=== PATIENT | female | born 1995 | race African-American/Black ===

== ENCOUNTER 2017-01-21 22:14 | Emergency (ER) | payer BC, MEDICAID ==
[~2017-01-21] VITALS: Ht 172.7 cm; Wt 62.0 kg
[2017-01-22] MEDS ORDERED: ALBUTEROL (0.083%) 2.5MG/3ML NEB HHN STA (01:57)
[2017-01-22] MEDS ORDERED: IPRATROPIUM BROMIDE (0.02%) 0.5MG/2.5ML NEB HHN STA (01:57)
[2017-01-22] MEDS ORDERED: IBUPROFEN 600MG TABLET PO ONE (02:00)
[2017-01-22 02:45] LABS: CLARITY URINE CLEAR (CLEAR); COLOR URINE YELLOW (YELLOW); GLUCOSE URINE NEGATIVE (NEGATIVE); KETONES URINE NEGATIVE (NEGATIVE); LEUKOCYTE ESTERASE URINE NEGATIVE (NEGATIVE); NITRITE URINE NEGATIVE (NEGATIVE); OCCULT BLOOD URINE NEGATIVE (NEGATIVE); PH URINE 6.5 (4.5-8.0); PROTEIN URINE NEGATIVE (NEGATIVE); SPECIFIC GRAVITY URINE 1.017 (1.005-1.030); UROBILINOGEN URINE 0.2 E.U./dL (0.2-1.0)
[2017-01-22] MEDS ORDERED: ACETAMINOPHEN 500MG TABLET PO ONE (04:30)
[2017-01-22 06:16] VITALS: BP 113/76
== END 2017-01-22 07:01 | disposition home or self-care (01) ==
LOC: ER 22:15
DX: M94.0 Chondrocostal junction syndrome [Tietze] (principal); J45.909 Unspecified asthma, uncomplicated; I51.7 Cardiomegaly
CPT/HCPCS: 71010; 81003; 81025; 93005; 94640; 99285; J7611

== ENCOUNTER 2018-08-19 18:55 | Emergency (ER) | payer BC, MEDICAID ==
[~2018-08-19] VITALS: Ht 172.7 cm; Wt 73.0 kg
[2018-08-19 21:45] VITALS: BP 122/76
[2018-08-19] MEDS: IBUPROFEN 600MG TABLET PO ONE (23:45)
[2018-08-20] MEDS: IBUPROFEN 600MG TABLET PO ONE (00:38)
== END 2018-08-19 23:16 | disposition home or self-care (01) ==
LOC: ER 18:55
DX: R07.9 Chest pain, unspecified (principal); J45.909 Unspecified asthma, uncomplicated; Z88.8 Allergy status to other drugs, medicaments and biological substances
CPT/HCPCS: 81025; 93005; 99283

== ENCOUNTER 2019-06-06 08:32 | Emergency (ER) | payer BC, MEDICAID ==
[~2019-06-06] VITALS: Ht 172.7 cm; Wt 77.0 kg
[2019-06-06 08:38] VITALS: BP 152/94
== END 2019-06-06 11:44 | disposition home or self-care (01) ==
LOC: ER 08:32
DX: H02.844 Edema of left upper eyelid (principal); H02.841 Edema of right upper eyelid; J45.909 Unspecified asthma, uncomplicated
CPT/HCPCS: 81025; 99283

== ENCOUNTER 2019-06-23 20:53 | Emergency (ER) | payer BC, MEDICAID ==
[~2019-06-23] VITALS: Ht 172.7 cm; Wt 78.0 kg
[2019-06-24] MEDS ORDERED: IPRATROPIUM BROMIDE (0.02%) 0.5MG/2.5ML NEB HHN STA (00:22)
[2019-06-24] MEDS ORDERED: ALBUTEROL (0.083%) 2.5MG/3ML NEB HHN STA (00:22)
[2019-06-24] MEDS ORDERED: PREDNISONE 20MG TABLET PO STA (00:22)
[2019-06-24] MEDS ORDERED: OXYCODONE HCL/ACETAMINOPHEN 5/325MG TABLET PO ONE (01:30)
[2019-06-24 02:30] VITALS: BP 124/78
== END 2019-06-24 02:45 | disposition home or self-care (01) ==
LOC: ER 20:53
DX: R09.1 Pleurisy (principal); R07.89 Other chest pain; R03.0 Elevated blood-pressure reading, without diagnosis of hypertension
CPT/HCPCS: 71045; 81025; 93005; 94644; 99285; J7512; J7611; Z7610